=== PATIENT | male | born 1970 | race Caucasian/White ===

== ENCOUNTER 2021-10-21 09:39 | Inpatient (IN) | payer OTHER ==
[2021-10-21] MEDS ORDERED: METHOCARBAMOL 500 MG TABLET PO PRN (09:56)
[2021-10-21] MEDS ORDERED: MENTHOL/PHENOL 1 EACH UD MM PRN (09:56)
[2021-10-21] MEDS ORDERED: MAGNESIUM HYDROX 2400MG/30ML ORAL SUSPENSION 30 ML CUP PO PRN (09:56)
[2021-10-21] MEDS ORDERED: IBUPROFEN 400 MG TABLET (FP) PO PRN (09:56)
[2021-10-21] MEDS ORDERED: ONDANSETRON *ODT* 4 MG TABLET SL PRN (09:56)
[2021-10-21] MEDS ORDERED: cloNIDine HCL 0.1 MG TABLET PO PRN (09:56)
[2021-10-21] MEDS ORDERED: MAGNESIUM CITRATE 300 ML BOTTLE PO PRN (09:56)
[2021-10-21] MEDS ORDERED: BISMUTH SUBSALICYLATE 524 MG/30 ML PO PRN (09:56)
[2021-10-21] MEDS ORDERED: MAG HYDROX/AL HYDROX/SIMETH 30 ML UNIT-DOSE CUP PO PRN (09:56)
[2021-10-21] MEDS ORDERED: ACETAMINOPHEN 325 MG TABLET (FP) PO PRN ×2 (09:56)
[2021-10-21] MEDS ORDERED: methaDONE HCL 10 MG TABLET (FOR DETOX USE ONLY) PO ONE (10:30)
[2021-10-21 10:50] VITALS: BMI 25.3
[2021-10-21] MEDS: PRENATAL VITAMINS W/ FOLIC ACID TABLET (FP) PO SCH (13:42)
[2021-10-21] MEDS: hydrOXYzine PAMOATE 25 MG CAPSULE (FP) PO SCH ×5 (13:42→22:34)
[2021-10-21 18:23] LABS: HEMATOCRIT 38.8 % (35.4-49); HEMOGLOBIN 13.2 GM/dL (11.7-16.9); MCH 30.6 pg (25.7-33.7); MCHC 34.1 g/dl (32.0-35.9); MEAN CELL VOLUME 89.6 fl (80-96); MEAN PLT VOLUME 7.6 fl (7.5-11.1); PLATELET COUNT 332 10^3/uL (134-434); RBC 4.33 M/mm3 (4.00-5.60); WHITE BLOOD COUNT 12.9 K/mm3 (4.0-10.0)
[2021-10-21 18:29] LABS: ALBUMIN 3.6 g/dl (3.4-5.0); CALCIUM 10.1 mg/dL (8.5-10.1)
[2021-10-21 18:30] LABS: BLOOD UREA NITROGEN 31.4 mg/dL (7-18)
[2021-10-21 18:32] LABS: CREATININE 1.4 mg/dL (0.55-1.3)
[2021-10-21 18:34] LABS: BILIRUBIN,TOTAL 0.7 mg/dL (0.2-1); TOT PROT 6.8 g/dl (6.4-8.2)
[2021-10-21 19:23] LABS: HIV INTERPRETATION NEGATIVE (NEGATIVE)
[2021-10-21] MEDS: THIAMINE HCL 100 MG TABLET (FP) PO SCH (22:34)
[2021-10-21] MEDS: MELATONIN 5 MG TABLETS PO SCH (22:34)
[2021-10-21] MEDS: ARIPiprazole 10 MG TABLET PO SCH (22:34)
[2021-10-22] MEDS: hydrOXYzine PAMOATE 25 MG CAPSULE (FP) PO SCH ×5 (07:13→22:17)
[2021-10-22] MEDS ORDERED: methaDONE HCL 10 MG TABLET (FOR DETOX USE ONLY) ONE (09:20)
[2021-10-22] MEDS: SERTRALINE HCL 50 MG TABLET (FP) PO SCH (10:52)
[2021-10-22] MEDS: PRENATAL VITAMINS W/ FOLIC ACID TABLET (FP) PO SCH (10:52)
[2021-10-22] MEDS ORDERED: FLU VACC QS2021-22(6MOS UP)/PF 60 MCG/0.5 ML SYRINGE IM ONE (13:00)
[2021-10-22] MEDS: ALBUTEROL SO4 HFA INHALER IH PRN (18:14)
[2021-10-22] MEDS: MELATONIN 5 MG TABLETS PO SCH (22:17)
[2021-10-22] MEDS: THIAMINE HCL 100 MG TABLET (FP) PO SCH (22:17)
[2021-10-22] MEDS: ARIPiprazole 10 MG TABLET PO SCH (22:17)
[2021-10-23] MEDS: hydrOXYzine PAMOATE 25 MG CAPSULE (FP) PO SCH ×5 (07:19→22:20)
[2021-10-23] MEDS ORDERED: methaDONE HCL 10 MG TABLET (FOR DETOX USE ONLY) PO ONE (10:00)
[2021-10-23] MEDS: LISINOPRIL 20 MG TABLET PO SCH (10:28)
[2021-10-23] MEDS: SERTRALINE HCL 50 MG TABLET (FP) PO SCH (10:28)
[2021-10-23] MEDS: NIFEdipine E.R. 30 MG TABLET PO SCH (10:28)
[2021-10-23] MEDS: PRENATAL VITAMINS W/ FOLIC ACID TABLET (FP) PO SCH (10:28)
[2021-10-23] MEDS ORDERED: ALBUTEROL SO4 2.5/IPRATROPIUM 0.5 INH SOL 3 ML VIAL.NEB. NEB ONE (11:35)
[2021-10-23] MEDS: ALBUTEROL SO4 HFA INHALER IH PRN (17:07)
[2021-10-23] MEDS: ARIPiprazole 10 MG TABLET PO SCH (22:20)
[2021-10-23] MEDS: MELATONIN 5 MG TABLETS PO SCH (22:20)
[2021-10-23] MEDS: THIAMINE HCL 100 MG TABLET (FP) PO SCH (22:20)
[2021-10-24] MEDS: hydrOXYzine PAMOATE 25 MG CAPSULE (FP) PO SCH ×5 (06:51→22:09)
[2021-10-24] MEDS ORDERED: methaDONE HCL 10 MG TABLET (FOR DETOX USE ONLY) ONE (09:48)
[2021-10-24] MEDS: ALBUTEROL SO4 HFA INHALER IH PRN ×2 (10:14→18:09)
[2021-10-24] MEDS: LISINOPRIL 20 MG TABLET PO SCH (10:16)
[2021-10-24] MEDS: PRENATAL VITAMINS W/ FOLIC ACID TABLET (FP) PO SCH (10:16)
[2021-10-24] MEDS: SERTRALINE HCL 50 MG TABLET (FP) PO SCH (10:16)
[2021-10-24] MEDS: NIFEdipine E.R. 30 MG TABLET PO SCH (10:16)
[2021-10-24 10:26] LABS: CALCIUM 9.3 mg/dL (8.5-10.1)
[2021-10-24 10:27] LABS: BASO % 0.3 % (0-2.0); BLOOD UREA NITROGEN 17.9 mg/dL (7-18); HEMATOCRIT 39.8 % (35.4-49); HEMOGLOBIN 13.9 GM/dL (11.7-16.9); MCH 30.7 pg (25.7-33.7); MEAN CELL VOLUME 87.6 fl (80-96); MEAN PLT VOLUME 7.6 fl (7.5-11.1); MONO % 8.5 % (3.8-10.2); NEUT % 57.2 % (42.8-82.8); PLATELET COUNT 360 10^3/uL (134-434); RBC 4.54 M/mm3 (4.00-5.60); RDW 14.6 % (11.9-15.9); WHITE BLOOD COUNT 7.4 K/mm3 (4.0-10.0)
[2021-10-24 10:30] LABS: CREATININE 1.1 mg/dL (0.55-1.3)
[2021-10-24] MEDS ORDERED: MODERNA COVID-19 VACC,MRNA/PF 50 MCG/0.25 ML EACH IM ONE (11:00)
[2021-10-24 13:33] LABS: PH,URINE 5.5 (5.0-8.0); URINE APPEARANCE CLEAR; URINE BILIRUBIN 1+ (NEGATIVE); URINE COLOR DK YELLOW; URINE GLUCOSE (UA) NEGATIVE (NEGATIVE); URINE KETONE TRACE (NEGATIVE); URINE LEUK ESTERASE NEGATIVE (NEGATIVE); URINE NITRITE NEGATIVE (NEGATIVE); URINE PROTEIN NEGATIVE (NEGATIVE)
[2021-10-24] MEDS: ARIPiprazole 10 MG TABLET PO SCH (22:09)
[2021-10-24] MEDS: THIAMINE HCL 100 MG TABLET (FP) PO SCH (22:09)
[2021-10-24] MEDS: MELATONIN 5 MG TABLETS PO SCH (22:09)
[2021-10-25] MEDS: hydrOXYzine PAMOATE 25 MG CAPSULE (FP) PO SCH ×5 (06:27→22:05)
[2021-10-25] MEDS: ALBUTEROL SO4 HFA INHALER IH PRN ×2 (07:12→22:06)
[2021-10-25] MEDS ORDERED: methaDONE HCL 10 MG TABLET (FOR DETOX USE ONLY) PO ONE (10:00)
[2021-10-25] MEDS: LISINOPRIL 20 MG TABLET PO SCH (10:13)
[2021-10-25] MEDS: SERTRALINE HCL 50 MG TABLET (FP) PO SCH (10:13)
[2021-10-25] MEDS: NIFEdipine E.R. 30 MG TABLET PO SCH (10:13)
[2021-10-25] MEDS: PRENATAL VITAMINS W/ FOLIC ACID TABLET (FP) PO SCH (10:13)
[2021-10-25] MEDS: THIAMINE HCL 100 MG TABLET (FP) PO SCH (22:05)
[2021-10-25] MEDS: ARIPiprazole 10 MG TABLET PO SCH (22:05)
[2021-10-25] MEDS: MELATONIN 5 MG TABLETS PO SCH (22:05)
[2021-10-26] MEDS: hydrOXYzine PAMOATE 25 MG CAPSULE (FP) PO SCH ×2 (05:43→10:27)
[2021-10-26 09:38] VITALS: BP 105/67; PULSE 92; TEMP 97.8
[2021-10-26] MEDS ORDERED: DOXYCYCLINE HYCLATE 100 MG TABLET PO SCH (10:15)
[2021-10-26] MEDS: NIFEdipine E.R. 30 MG TABLET PO SCH (10:27)
[2021-10-26] MEDS: PRENATAL VITAMINS W/ FOLIC ACID TABLET (FP) PO SCH (10:27)
[2021-10-26] MEDS: LISINOPRIL 20 MG TABLET PO SCH (10:27)
[2021-10-26] MEDS: SERTRALINE HCL 50 MG TABLET (FP) PO SCH (10:27)
== END 2021-10-26 11:36 | disposition other institution (70) | DRG 773 ==
LOC: YASAS 09:39 → Y3N 10:32
PROVIDERS: ADMIT Allergy & Immunology; ATTEND Allergy & Immunology
PROC: HZ2ZZZZ Detoxification Services for Substance Abuse Treatment (ICD-10-PCS; principal; 2021-10-21)
DX: F11.23 Opioid dependence with withdrawal (principal); F14.20 Cocaine dependence, uncomplicated; F25.9 Schizoaffective disorder, unspecified; F19.24 Other psychoactive substance dependence with psychoactive substance-induced mood disorder; I10 Essential (primary) hypertension; J45.909 Unspecified asthma, uncomplicated; G47.00 Insomnia, unspecified; R76.8 Other specified abnormal immunological findings in serum; N17.9 Acute kidney failure, unspecified; D72.829 Elevated white blood cell count, unspecified; Z88.0 Allergy status to penicillin; Z86.19 Personal history of other infectious and parasitic diseases; Z56.0 Unemployment, unspecified
CPT/HCPCS: 36415; 80048; 80053; 81003; 85025; 85027; 86593; 86780; 87389; 93005; 93010; C9803; U0003; U0005

== ENCOUNTER 2021-10-26 11:53 | Inpatient (IN) | payer OTHER ==
[2021-10-26] MEDS ORDERED: FLU VACC QS2021-22(6MOS UP)/PF 60 MCG/0.5 ML SYRINGE IM ONE (12:07)
[2021-10-26] MEDS ORDERED: PNEUMOC 13-VAL CONJ-DIP CRM/PF 0.5 ML DISP.SYRIN IM ONE (12:07)
[2021-10-26] MEDS ORDERED: PNEUMOCOCCAL 23 VACCINE 0.5 ML VIAL IM ONE (12:30)
[2021-10-26] MEDS ORDERED: ACETAMINOPHEN 325 MG TABLET (FP) PO PRN (12:59)
[2021-10-26] MEDS ORDERED: P-EPHED 60MG/TRIPROLIDI 2.5MG TABLET PO PRN (12:59)
[2021-10-26] MEDS ORDERED: MAGNESIUM CITRATE 300 ML BOTTLE PO PRN (12:59)
[2021-10-26] MEDS ORDERED: guaiFENesin 200 MG/10 ML 10 ML UNIT-DOSE CUPS PO PRN (12:59)
[2021-10-26] MEDS ORDERED: hydrOXYzine PAMOATE 25 MG CAPSULE (FP) PO PRN (12:59)
[2021-10-26] MEDS ORDERED: MAGNESIUM HYDROX 2400MG/30ML ORAL SUSPENSION 30 ML CUP PO PRN (12:59)
[2021-10-26] MEDS ORDERED: MAG HYDROX/AL HYDROX/SIMETH 30 ML UNIT-DOSE CUP PO PRN (12:59)
[2021-10-26] MEDS ORDERED: NICOTINE 10 MG CARTRIDGE (INHALER) IH PRN (12:59)
[2021-10-26] MEDS ORDERED: LOPERAMIDE HCL 2 MG CAPSULE PO PRN (12:59)
[2021-10-26] MEDS ORDERED: MENTHOL/PHENOL 1 EACH UD MM PRN (12:59)
[2021-10-26] MEDS: ALBUTEROL SO4 HFA INHALER IH PRN (19:41)
[2021-10-26] MEDS: THIAMINE HCL 100 MG TABLET (FP) PO SCH (21:00)
[2021-10-26] MEDS: MELATONIN 5 MG TABLETS PO SCH (21:00)
[2021-10-26] MEDS: ARIPiprazole 10 MG TABLET PO SCH (21:01)
[2021-10-27] MEDS: NIFEdipine E.R. 30 MG TABLET PO SCH (09:59)
[2021-10-27] MEDS: SERTRALINE HCL 50 MG TABLET (FP) PO SCH (09:59)
[2021-10-27] MEDS: NICOTINE 7 MG/24 HOURS TOPICAL PATCH TD SCH (09:59)
[2021-10-27] MEDS: LISINOPRIL 20 MG TABLET PO SCH (09:59)
[2021-10-27] MEDS: PRENATAL VITAMINS W/ FOLIC ACID TABLET (FP) PO SCH (09:59)
[2021-10-27] MEDS: ARIPiprazole 10 MG TABLET PO SCH (09:59)
[2021-10-27] MEDS ORDERED: PNEUMOCOCCAL 23 VACCINE 0.5 ML VIAL IM ONE (12:00)
[2021-10-27] MEDS ORDERED: FLU VACC QS2021-22(6MOS UP)/PF 60 MCG/0.5 ML SYRINGE IM ONE (12:00)
[2021-10-27] MEDS: MELATONIN 5 MG TABLETS PO SCH (21:37)
[2021-10-27] MEDS: THIAMINE HCL 100 MG TABLET (FP) PO SCH (21:37)
[2021-10-28] MEDS: IBUPROFEN 400 MG TABLET (FP) PO PRN ×2 (00:44→21:14)
[2021-10-28] MEDS: NIFEdipine E.R. 30 MG TABLET PO SCH (09:46)
[2021-10-28] MEDS: LISINOPRIL 20 MG TABLET PO SCH (09:46)
[2021-10-28] MEDS: ARIPiprazole 10 MG TABLET PO SCH (09:46)
[2021-10-28] MEDS: ALBUTEROL SO4 HFA INHALER IH PRN (09:47)
[2021-10-28] MEDS: SERTRALINE HCL 50 MG TABLET (FP) PO SCH (09:47)
[2021-10-28] MEDS: PRENATAL VITAMINS W/ FOLIC ACID TABLET (FP) PO SCH (09:48)
[2021-10-28] MEDS: NICOTINE 7 MG/24 HOURS TOPICAL PATCH TD SCH (09:48)
[2021-10-28] MEDS: DOXYCYCLINE HYCLATE 100 MG TABLET PO SCH (17:18)
[2021-10-28] MEDS: MELATONIN 5 MG TABLETS PO SCH (21:13)
[2021-10-28] MEDS: THIAMINE HCL 100 MG TABLET (FP) PO SCH (21:13)
[2021-10-29] MEDS: SERTRALINE HCL 50 MG TABLET (FP) PO SCH (09:53)
[2021-10-29] MEDS: DOXYCYCLINE HYCLATE 100 MG TABLET PO SCH ×2 (09:53→17:07)
[2021-10-29] MEDS: NIFEdipine E.R. 30 MG TABLET PO SCH (09:53)
[2021-10-29] MEDS: NICOTINE 7 MG/24 HOURS TOPICAL PATCH TD SCH (09:53)
[2021-10-29] MEDS: ARIPiprazole 10 MG TABLET PO SCH (09:53)
[2021-10-29] MEDS: PRENATAL VITAMINS W/ FOLIC ACID TABLET (FP) PO SCH (09:53)
[2021-10-29] MEDS: LISINOPRIL 20 MG TABLET PO SCH (09:53)
[2021-10-29] MEDS: BACITRACIN 0.9 GM PACKET TP SCH ×3 (14:53→21:09)
[2021-10-29] MEDS: MELATONIN 5 MG TABLETS PO SCH (21:08)
[2021-10-29] MEDS: THIAMINE HCL 100 MG TABLET (FP) PO SCH (21:08)
[2021-10-30] MEDS: IBUPROFEN 400 MG TABLET (FP) PO PRN (06:23)
[2021-10-30] MEDS: DOXYCYCLINE HYCLATE 100 MG TABLET PO SCH ×2 (09:29→18:02)
[2021-10-30] MEDS: NIFEdipine E.R. 30 MG TABLET PO SCH (09:29)
[2021-10-30] MEDS: ARIPiprazole 10 MG TABLET PO SCH (09:29)
[2021-10-30] MEDS: NICOTINE 7 MG/24 HOURS TOPICAL PATCH TD SCH (09:29)
[2021-10-30] MEDS: SERTRALINE HCL 50 MG TABLET (FP) PO SCH (09:29)
[2021-10-30] MEDS: PRENATAL VITAMINS W/ FOLIC ACID TABLET (FP) PO SCH (09:29)
[2021-10-30] MEDS: BACITRACIN 0.9 GM PACKET TP SCH ×2 (09:29→21:10)
[2021-10-30] MEDS: LISINOPRIL 20 MG TABLET PO SCH (09:29)
[2021-10-30] MEDS: THIAMINE HCL 100 MG TABLET (FP) PO SCH (21:09)
[2021-10-30] MEDS: MELATONIN 5 MG TABLETS PO SCH (21:09)
[2021-10-31] MEDS: LISINOPRIL 20 MG TABLET PO SCH ×2 (06:05→10:10)
[2021-10-31 07:11] VITALS: TEMP 98.8
[2021-10-31] MEDS: BACITRACIN 0.9 GM PACKET TP SCH (10:10)
[2021-10-31] MEDS: NICOTINE 7 MG/24 HOURS TOPICAL PATCH TD SCH (10:10)
[2021-10-31] MEDS: SERTRALINE HCL 50 MG TABLET (FP) PO SCH (10:10)
[2021-10-31] MEDS: NIFEdipine E.R. 30 MG TABLET PO SCH (10:10)
[2021-10-31] MEDS: DOXYCYCLINE HYCLATE 100 MG TABLET PO SCH (10:10)
[2021-10-31] MEDS: PRENATAL VITAMINS W/ FOLIC ACID TABLET (FP) PO SCH (10:10)
[2021-10-31] MEDS: ARIPiprazole 10 MG TABLET PO SCH (10:10)
[2021-10-31 10:30] VITALS: BP 144/90; PULSE 92
[2021-10-31] MEDS ORDERED: LITHIUM CARBONATE 300 MG CAPSULE PO SCH (11:30)
[2021-10-31] MEDS: ALBUTEROL SO4 HFA INHALER IH PRN (14:24)
[2021-10-31] MEDS ORDERED: SUVOREXANT 10 MG TABLET PO PRN (22:00)
== END 2021-10-31 14:28 | disposition home or self-care (01) | DRG 772 ==
LOC: YASAS 11:53 → Y3W 11:55
PROVIDERS: ADMIT Allergy & Immunology; ATTEND Allergy & Immunology
PROC: HZ42ZZZ Group Counseling for Substance Abuse Treatment, Cognitive-Behavioral (ICD-10-PCS; principal; 2021-10-26)
DX: F11.20 Opioid dependence, uncomplicated (principal); F14.20 Cocaine dependence, uncomplicated; F25.9 Schizoaffective disorder, unspecified; F19.24 Other psychoactive substance dependence with psychoactive substance-induced mood disorder; I10 Essential (primary) hypertension; J45.909 Unspecified asthma, uncomplicated; G47.00 Insomnia, unspecified; X10.0XXA Contact with hot drinks, initial encounter; Y93.9 Activity, unspecified; Y92.239 Unspecified place in hospital as the place of occurrence of the external cause; Z88.0 Allergy status to penicillin; Z86.19 Personal history of other infectious and parasitic diseases; Z56.0 Unemployment, unspecified
CPT/HCPCS: 82962; 90686; 90732; G0008; G0009

== ENCOUNTER 2022-02-18 10:06 | Inpatient (IN) | payer OTHER ==
[2022-02-18] MEDS ORDERED: ALBUTEROL SO4 HFA INHALER IH PRN (12:22)
[2022-02-18] MEDS ORDERED: MAGNESIUM CITRATE 300 ML BOTTLE PO PRN (12:25)
[2022-02-18] MEDS ORDERED: MAGNESIUM HYDROX 2400MG/30ML ORAL SUSPENSION 30 ML CUP PO PRN (12:25)
[2022-02-18] MEDS ORDERED: P-EPHED 60MG/TRIPROLIDI 2.5MG TABLET PO PRN (12:25)
[2022-02-18] MEDS ORDERED: BISMUTH SUBSALICYLATE 524 MG/30 ML PO PRN (12:25)
[2022-02-18] MEDS ORDERED: IBUPROFEN 400 MG TABLET (FP) PO PRN (12:25)
[2022-02-18] MEDS ORDERED: METHOCARBAMOL 500 MG TABLET PO PRN (12:25)
[2022-02-18] MEDS ORDERED: MENTHOL/PHENOL 1 EACH UD MM PRN (12:25)
[2022-02-18] MEDS ORDERED: MAG HYDROX/AL HYDROX/SIMETH 30 ML UNIT-DOSE CUP PO PRN (12:25)
[2022-02-18] MEDS ORDERED: hydrOXYzine PAMOATE 25 MG CAPSULE (FP) PO PRN (12:25)
[2022-02-18] MEDS ORDERED: ONDANSETRON *ODT* 4 MG TABLET SL PRN (12:25)
[2022-02-18] MEDS ORDERED: MELATONIN 5 MG TABLETS PO PRN (12:25)
[2022-02-18] MEDS ORDERED: ACETAMINOPHEN 325 MG TABLET (FP) PO PRN ×2 (12:25)
[2022-02-18] MEDS ORDERED: DICYCLOMINE HCL 10 MG CAPSULE PO PRN (12:25)
[2022-02-18] MEDS ORDERED: LOPERAMIDE HCL 2 MG CAPSULE PO PRN (12:25)
[2022-02-18] MEDS ORDERED: diazePAM 5 MG TABLET PO PRN (12:28)
[2022-02-18] MEDS ORDERED: AMMONIUM LACTATE 12% LOTION 225 GM BOTTLE TP PRN (12:37)
[2022-02-18 13:17] VITALS: BMI 27.6
[2022-02-18] MEDS ORDERED: THIAMINE HCL 100 MG TABLET (FP) PO SCH (22:00)
[2022-02-18] MEDS: FLUTICASONE/SALMETEROL 100 MCG/50 MCG DISKUS IH SCH (22:28)
[2022-02-19] MEDS ORDERED: SERTRALINE HCL 50 MG TABLET (FP) PO SCH (10:00)
[2022-02-19] MEDS ORDERED: PRENATAL VITAMINS W/ FOLIC ACID TABLET (FP) PO SCH (10:00)
[2022-02-19] MEDS ORDERED: LISINOPRIL 10 MG TABLET PO SCH (10:00)
[2022-02-19 10:16] VITALS: BP 127/84; PULSE 104; TEMP 97.6
[2022-02-19] MEDS: FLUTICASONE/SALMETEROL 100 MCG/50 MCG DISKUS IH SCH (10:21)
[2022-02-21 00:06] LABS: SARS-CoV-2 NAA Not Detected (Not Detected)
== END 2022-02-19 12:23 | disposition other institution (70) | DRG 773 ==
LOC: YASAS 10:06 → UNDOADMIN 13:09 → Y6N 13:09 → UNDODISIN 02-19 12:23
PROVIDERS: ADMIT Allergy & Immunology; ATTEND Allergy & Immunology
PROC: HZ2ZZZZ Detoxification Services for Substance Abuse Treatment (ICD-10-PCS; principal; 2022-02-18)
DX: F11.23 Opioid dependence with withdrawal (principal); F13.230 Sedative, hypnotic or anxiolytic dependence with withdrawal, uncomplicated; F19.24 Other psychoactive substance dependence with psychoactive substance-induced mood disorder; F32.A Depression, unspecified; I10 Essential (primary) hypertension; J44.9 Chronic obstructive pulmonary disease, unspecified; J45.20 Mild intermittent asthma, uncomplicated; Z86.19 Personal history of other infectious and parasitic diseases; Z88.0 Allergy status to penicillin
CPT/HCPCS: C9803-CS; U0003; U0005

== ENCOUNTER 2022-02-19 09:46 | Inpatient (IN) | payer OTHER ==
[2022-02-19] MEDS ORDERED: ACETAMINOPHEN 325 MG TABLET (FP) PO PRN (15:59)
[2022-02-19] MEDS ORDERED: NICOTINE 10 MG CARTRIDGE (INHALER) IH PRN (15:59)
[2022-02-19] MEDS ORDERED: IBUPROFEN 400 MG TABLET (FP) PO PRN (15:59)
[2022-02-19] MEDS ORDERED: NICOTINE POLACRILEX 2 MG GUM BC PRN (15:59)
[2022-02-19] MEDS ORDERED: LOPERAMIDE HCL 2 MG CAPSULE PO PRN (15:59)
[2022-02-19] MEDS ORDERED: guaiFENesin 200 MG/10 ML 10 ML UNIT-DOSE CUPS PO PRN (15:59)
[2022-02-19] MEDS ORDERED: MAGNESIUM HYDROX 2400MG/30ML ORAL SUSPENSION 30 ML CUP PO PRN (15:59)
[2022-02-19] MEDS ORDERED: MAGNESIUM CITRATE 300 ML BOTTLE PO PRN (15:59)
[2022-02-19] MEDS: THIAMINE HCL 100 MG TABLET (FP) PO SCH (21:22)
[2022-02-19] MEDS: MELATONIN 5 MG TABLETS PO SCH (21:22)
[2022-02-19] MEDS: AMMONIUM LACTATE 12% LOTION 225 GM BOTTLE TP SCH (21:23)
[2022-02-19] MEDS: BUDESONIDE/FORMETEROL FUMARATE 160/4.5 mcg INHALER IH SCH (21:23)
[2022-02-20] MEDS: hydrOXYzine PAMOATE 25 MG CAPSULE (FP) PO PRN (06:43)
[2022-02-20] MEDS ORDERED: LISINOPRIL 20 MG TABLET PO ONE (09:37)
[2022-02-20] MEDS ORDERED: LISINOPRIL 20 MG TABLET PO SCH (10:00)
[2022-02-20] MEDS: PRENATAL VITAMINS W/ FOLIC ACID TABLET (FP) PO SCH (11:14)
[2022-02-20] MEDS: BUDESONIDE/FORMETEROL FUMARATE 160/4.5 mcg INHALER IH SCH ×2 (11:15→21:36)
[2022-02-20] MEDS: SERTRALINE HCL 50 MG TABLET (FP) PO SCH (12:10)
[2022-02-20] MEDS: AMMONIUM LACTATE 12% LOTION 225 GM BOTTLE TP SCH ×2 (12:10→21:37)
[2022-02-20 14:41] LABS: HEMOGLOBIN 13.5 GM/dL (11.7-16.9); MCH 29.9 pg (25.7-33.7); MCHC 33.7 g/dl (32.0-35.9); MEAN CELL VOLUME 88.6 fl (80-96); MEAN PLT VOLUME 7.7 fl (7.5-11.1); PLATELET COUNT 395 10^3/uL (134-434); RBC 4.51 M/mm3 (4.00-5.60); RDW 14.2 % (11.9-15.9); WHITE BLOOD COUNT 6.2 K/mm3 (4.0-10.0)
[2022-02-20 15:06] LABS: CALCIUM 10.5 mg/dL (8.5-10.1)
[2022-02-20 15:07] LABS: ALBUMIN 3.7 g/dl (3.4-5.0); BLOOD UREA NITROGEN 13.8 mg/dL (7-18)
[2022-02-20 15:10] LABS: CREATININE 1.1 mg/dL (0.55-1.3)
[2022-02-20 15:11] LABS: BILIRUBIN,TOTAL 0.6 mg/dL (0.2-1); TOT PROT 7.1 g/dl (6.4-8.2)
[2022-02-20] MEDS: MELATONIN 5 MG TABLETS PO SCH (21:36)
[2022-02-20] MEDS: THIAMINE HCL 100 MG TABLET (FP) PO SCH (21:36)
[2022-02-21] MEDS: LISINOPRIL 20 MG TABLET PO SCH (06:05)
[2022-02-21] MEDS ORDERED: ACETAMINOPHEN 325 MG TABLET (FP) PO PRN (09:17)
[2022-02-21] MEDS ORDERED: MECLIZINE HCL 25 MG TABLET (FP) PO ONE (09:18)
[2022-02-21] MEDS: PRENATAL VITAMINS W/ FOLIC ACID TABLET (FP) PO SCH (10:18)
[2022-02-21] MEDS: SERTRALINE HCL 50 MG TABLET (FP) PO SCH (10:18)
[2022-02-21] MEDS: BUDESONIDE/FORMETEROL FUMARATE 160/4.5 mcg INHALER IH SCH ×2 (10:19→21:14)
[2022-02-21] MEDS: AMMONIUM LACTATE 12% LOTION 225 GM BOTTLE TP SCH ×2 (10:19→21:14)
[2022-02-21] MEDS: MELATONIN 5 MG TABLETS PO SCH (21:13)
[2022-02-21] MEDS: THIAMINE HCL 100 MG TABLET (FP) PO SCH (21:13)
[2022-02-22] MEDS: LISINOPRIL 20 MG TABLET PO SCH (05:34)
[2022-02-22] MEDS: SERTRALINE HCL 50 MG TABLET (FP) PO SCH (09:46)
[2022-02-22] MEDS: hydrOXYzine PAMOATE 25 MG CAPSULE (FP) PO PRN (09:46)
[2022-02-22] MEDS: BUDESONIDE/FORMETEROL FUMARATE 160/4.5 mcg INHALER IH SCH ×2 (09:46→21:16)
[2022-02-22] MEDS: PRENATAL VITAMINS W/ FOLIC ACID TABLET (FP) PO SCH (09:46)
[2022-02-22] MEDS: AMMONIUM LACTATE 12% LOTION 225 GM BOTTLE TP SCH ×2 (10:02→21:16)
[2022-02-22] MEDS: MELATONIN 5 MG TABLETS PO SCH (21:16)
[2022-02-22] MEDS: THIAMINE HCL 100 MG TABLET (FP) PO SCH (21:16)
[2022-02-23] MEDS: LISINOPRIL 20 MG TABLET PO SCH (05:50)
[2022-02-23] MEDS: BUDESONIDE/FORMETEROL FUMARATE 160/4.5 mcg INHALER IH SCH ×2 (10:20→21:07)
[2022-02-23] MEDS: PRENATAL VITAMINS W/ FOLIC ACID TABLET (FP) PO SCH (10:20)
[2022-02-23] MEDS: SERTRALINE HCL 50 MG TABLET (FP) PO SCH (10:20)
[2022-02-23] MEDS: hydrOXYzine PAMOATE 25 MG CAPSULE (FP) PO PRN (10:20)
[2022-02-23] MEDS: AMMONIUM LACTATE 12% LOTION 225 GM BOTTLE TP SCH ×2 (10:21→21:07)
[2022-02-23] MEDS: METHOCARBAMOL 500 MG TABLET PO SCH ×3 (14:13→21:06)
[2022-02-23 15:08] LABS: SARS-CoV-2 NAA Not Detected (Not Detected)
[2022-02-23] MEDS: THIAMINE HCL 100 MG TABLET (FP) PO SCH (21:06)
[2022-02-23] MEDS: SUVOREXANT 10 MG TABLET PO PRN (21:06)
[2022-02-23] MEDS ORDERED: MELATONIN 5 MG TABLETS PO SCH (22:00)
[2022-02-24] MEDS: LISINOPRIL 20 MG TABLET PO SCH (05:40)
[2022-02-24] MEDS: SERTRALINE HCL 50 MG TABLET (FP) PO SCH (10:08)
[2022-02-24] MEDS: METHOCARBAMOL 500 MG TABLET PO SCH ×4 (10:08→21:27)
[2022-02-24] MEDS: AMMONIUM LACTATE 12% LOTION 225 GM BOTTLE TP SCH ×2 (10:08→21:27)
[2022-02-24] MEDS: BUDESONIDE/FORMETEROL FUMARATE 160/4.5 mcg INHALER IH SCH ×2 (10:09→21:27)
[2022-02-24] MEDS: PRENATAL VITAMINS W/ FOLIC ACID TABLET (FP) PO SCH (10:09)
[2022-02-24] MEDS: hydrOXYzine PAMOATE 25 MG CAPSULE (FP) PO PRN (10:10)
[2022-02-24] MEDS ORDERED: LISINOPRIL 10 MG TABLET PO ONE (10:52)
[2022-02-24] MEDS: THIAMINE HCL 100 MG TABLET (FP) PO SCH (21:26)
[2022-02-24] MEDS: SUVOREXANT 10 MG TABLET PO PRN (21:27)
[2022-02-25] MEDS: hydrOXYzine PAMOATE 25 MG CAPSULE (FP) PO PRN (05:46)
[2022-02-25] MEDS: LISINOPRIL 10 MG TABLET PO SCH (05:46)
[2022-02-25] MEDS: ALBUTEROL SO4 HFA INHALER IH PRN (05:49)
[2022-02-25] MEDS: PRENATAL VITAMINS W/ FOLIC ACID TABLET (FP) PO SCH (09:57)
[2022-02-25] MEDS: METHOCARBAMOL 500 MG TABLET PO SCH ×4 (09:57→23:00)
[2022-02-25] MEDS: AMMONIUM LACTATE 12% LOTION 225 GM BOTTLE TP SCH ×2 (09:57→23:00)
[2022-02-25] MEDS: SERTRALINE HCL 50 MG TABLET (FP) PO SCH (09:57)
[2022-02-25] MEDS: BUDESONIDE/FORMETEROL FUMARATE 160/4.5 mcg INHALER IH SCH ×2 (09:58→23:00)
[2022-02-25] MEDS: THIAMINE HCL 100 MG TABLET (FP) PO SCH (22:59)
[2022-02-25] MEDS: SUVOREXANT 10 MG TABLET PO PRN (22:59)
[2022-02-26] MEDS: LISINOPRIL 10 MG TABLET PO SCH (06:17)
[2022-02-26] MEDS: PRENATAL VITAMINS W/ FOLIC ACID TABLET (FP) PO SCH (10:15)
[2022-02-26] MEDS: SERTRALINE HCL 50 MG TABLET (FP) PO SCH (10:15)
[2022-02-26] MEDS: AMMONIUM LACTATE 12% LOTION 225 GM BOTTLE TP SCH ×2 (10:16→21:41)
[2022-02-26] MEDS: BUDESONIDE/FORMETEROL FUMARATE 160/4.5 mcg INHALER IH SCH ×2 (10:16→21:41)
[2022-02-26] MEDS: METHOCARBAMOL 500 MG TABLET PO SCH ×4 (10:16→21:41)
[2022-02-26] MEDS: THIAMINE HCL 100 MG TABLET (FP) PO SCH (21:41)
[2022-02-27] MEDS: LISINOPRIL 10 MG TABLET PO SCH (06:41)
[2022-02-27] MEDS: SERTRALINE HCL 50 MG TABLET (FP) PO SCH (10:02)
[2022-02-27] MEDS: METHOCARBAMOL 500 MG TABLET PO SCH ×4 (10:03→21:19)
[2022-02-27] MEDS: BUDESONIDE/FORMETEROL FUMARATE 160/4.5 mcg INHALER IH SCH ×2 (10:03→21:20)
[2022-02-27] MEDS: PRENATAL VITAMINS W/ FOLIC ACID TABLET (FP) PO SCH (10:03)
[2022-02-27] MEDS: AMMONIUM LACTATE 12% LOTION 225 GM BOTTLE TP SCH ×2 (10:04→21:20)
[2022-02-27] MEDS: hydrOXYzine PAMOATE 25 MG CAPSULE (FP) PO PRN (14:09)
[2022-02-27] MEDS: ALBUTEROL SO4 HFA INHALER IH PRN (14:10)
[2022-02-27] MEDS: THIAMINE HCL 100 MG TABLET (FP) PO SCH (21:19)
[2022-02-27] MEDS: SUVOREXANT 10 MG TABLET PO PRN (21:20)
[2022-02-28] MEDS: LISINOPRIL 10 MG TABLET PO SCH (06:09)
[2022-02-28] MEDS: BUDESONIDE/FORMETEROL FUMARATE 160/4.5 mcg INHALER IH SCH ×2 (09:46→21:07)
[2022-02-28] MEDS: PRENATAL VITAMINS W/ FOLIC ACID TABLET (FP) PO SCH (09:47)
[2022-02-28] MEDS: SERTRALINE HCL 50 MG TABLET (FP) PO SCH (09:47)
[2022-02-28] MEDS: AMMONIUM LACTATE 12% LOTION 225 GM BOTTLE TP SCH ×2 (09:47→21:07)
[2022-02-28] MEDS: METHOCARBAMOL 500 MG TABLET PO SCH ×4 (09:47→21:06)
[2022-02-28] MEDS: MAG HYDROX/AL HYDROX/SIMETH 30 ML UNIT-DOSE CUP PO PRN (09:49)
[2022-02-28] MEDS: FLUTICASONE PROP 0.05% 16 GM NASAL SPRAY NS SCH ×2 (14:30→21:06)
[2022-02-28] MEDS: SUVOREXANT 10 MG TABLET PO PRN (21:06)
[2022-02-28] MEDS: THIAMINE HCL 100 MG TABLET (FP) PO SCH (21:06)
[2022-03-01] MEDS: hydrOXYzine PAMOATE 25 MG CAPSULE (FP) PO PRN (05:57)
[2022-03-01] MEDS: LISINOPRIL 10 MG TABLET PO SCH (05:57)
[2022-03-01] MEDS: BUDESONIDE/FORMETEROL FUMARATE 160/4.5 mcg INHALER IH SCH ×2 (10:24→21:23)
[2022-03-01] MEDS: AMMONIUM LACTATE 12% LOTION 225 GM BOTTLE TP SCH ×2 (10:25→21:23)
[2022-03-01] MEDS: PRENATAL VITAMINS W/ FOLIC ACID TABLET (FP) PO SCH (10:25)
[2022-03-01] MEDS: METHOCARBAMOL 500 MG TABLET PO SCH ×4 (10:25→21:22)
[2022-03-01] MEDS: FLUTICASONE PROP 0.05% 16 GM NASAL SPRAY NS SCH ×2 (10:25→21:22)
[2022-03-01] MEDS: SERTRALINE HCL 50 MG TABLET (FP) PO SCH (10:25)
[2022-03-01] MEDS: THIAMINE HCL 100 MG TABLET (FP) PO SCH (21:22)
[2022-03-01] MEDS: SUVOREXANT 10 MG TABLET PO PRN (21:23)
[2022-03-02] MEDS: LISINOPRIL 10 MG TABLET PO SCH (06:22)
[2022-03-02] MEDS: hydrOXYzine PAMOATE 25 MG CAPSULE (FP) PO PRN (06:22)
[2022-03-02] MEDS: BUDESONIDE/FORMETEROL FUMARATE 160/4.5 mcg INHALER IH SCH ×2 (09:44→21:44)
[2022-03-02] MEDS: PRENATAL VITAMINS W/ FOLIC ACID TABLET (FP) PO SCH (09:45)
[2022-03-02] MEDS: SERTRALINE HCL 50 MG TABLET (FP) PO SCH (09:45)
[2022-03-02] MEDS: AMMONIUM LACTATE 12% LOTION 225 GM BOTTLE TP SCH ×2 (09:45→21:42)
[2022-03-02] MEDS: METHOCARBAMOL 500 MG TABLET PO SCH ×4 (09:45→21:42)
[2022-03-02] MEDS: FLUTICASONE PROP 0.05% 16 GM NASAL SPRAY NS SCH ×2 (09:45→21:42)
[2022-03-02] MEDS: THIAMINE HCL 100 MG TABLET (FP) PO SCH (21:43)
[2022-03-02] MEDS: SUVOREXANT 10 MG TABLET PO PRN (21:44)
[2022-03-03] MEDS: LISINOPRIL 10 MG TABLET PO SCH (06:40)
[2022-03-03] MEDS: PRENATAL VITAMINS W/ FOLIC ACID TABLET (FP) PO SCH (09:59)
[2022-03-03] MEDS: SERTRALINE HCL 50 MG TABLET (FP) PO SCH (09:59)
[2022-03-03] MEDS: AMMONIUM LACTATE 12% LOTION 225 GM BOTTLE TP SCH ×2 (09:59→21:06)
[2022-03-03] MEDS: FLUTICASONE PROP 0.05% 16 GM NASAL SPRAY NS SCH ×2 (09:59→21:06)
[2022-03-03] MEDS: METHOCARBAMOL 500 MG TABLET PO SCH ×4 (09:59→21:05)
[2022-03-03] MEDS: BUDESONIDE/FORMETEROL FUMARATE 160/4.5 mcg INHALER IH SCH ×2 (09:59→21:06)
[2022-03-03] MEDS: hydrOXYzine PAMOATE 25 MG CAPSULE (FP) PO PRN (10:00)
[2022-03-03] MEDS: THIAMINE HCL 100 MG TABLET (FP) PO SCH (21:05)
[2022-03-03] MEDS: SUVOREXANT 10 MG TABLET PO PRN (21:05)
[2022-03-04] MEDS: LISINOPRIL 10 MG TABLET PO SCH (05:55)
[2022-03-04] MEDS: BUDESONIDE/FORMETEROL FUMARATE 160/4.5 mcg INHALER IH SCH ×2 (10:13→21:39)
[2022-03-04] MEDS: METHOCARBAMOL 500 MG TABLET PO SCH ×4 (10:14→21:03)
[2022-03-04] MEDS: AMMONIUM LACTATE 12% LOTION 225 GM BOTTLE TP SCH ×2 (10:14→21:39)
[2022-03-04] MEDS: SERTRALINE HCL 50 MG TABLET (FP) PO SCH (10:14)
[2022-03-04] MEDS: PRENATAL VITAMINS W/ FOLIC ACID TABLET (FP) PO SCH (10:14)
[2022-03-04] MEDS: FLUTICASONE PROP 0.05% 16 GM NASAL SPRAY NS SCH ×2 (10:14→21:05)
[2022-03-04] MEDS: THIAMINE HCL 100 MG TABLET (FP) PO SCH (21:03)
[2022-03-04] MEDS: SUVOREXANT 10 MG TABLET PO PRN (21:04)
[2022-03-05] MEDS: LISINOPRIL 10 MG TABLET PO SCH (06:33)
[2022-03-05] MEDS: ALBUTEROL SO4 HFA INHALER IH PRN (06:34)
[2022-03-05] MEDS: SERTRALINE HCL 50 MG TABLET (FP) PO SCH (10:02)
[2022-03-05] MEDS: PRENATAL VITAMINS W/ FOLIC ACID TABLET (FP) PO SCH (10:02)
[2022-03-05] MEDS: METHOCARBAMOL 500 MG TABLET PO SCH ×4 (10:03→21:29)
[2022-03-05] MEDS: AMMONIUM LACTATE 12% LOTION 225 GM BOTTLE TP SCH ×2 (10:03→21:30)
[2022-03-05] MEDS: FLUTICASONE PROP 0.05% 16 GM NASAL SPRAY NS SCH ×2 (10:03→21:30)
[2022-03-05] MEDS: BUDESONIDE/FORMETEROL FUMARATE 160/4.5 mcg INHALER IH SCH ×2 (10:03→21:47)
[2022-03-05] MEDS: THIAMINE HCL 100 MG TABLET (FP) PO SCH (21:29)
[2022-03-05] MEDS: SUVOREXANT 10 MG TABLET PO PRN (21:29)
[2022-03-06] MEDS: LISINOPRIL 10 MG TABLET PO SCH (06:35)
[2022-03-06] MEDS: BUDESONIDE/FORMETEROL FUMARATE 160/4.5 mcg INHALER IH SCH ×2 (10:08→21:42)
[2022-03-06] MEDS: PRENATAL VITAMINS W/ FOLIC ACID TABLET (FP) PO SCH (10:08)
[2022-03-06] MEDS: SERTRALINE HCL 50 MG TABLET (FP) PO SCH (10:08)
[2022-03-06] MEDS: ALBUTEROL SO4 HFA INHALER IH PRN (10:08)
[2022-03-06] MEDS: AMMONIUM LACTATE 12% LOTION 225 GM BOTTLE TP SCH ×2 (10:09→21:43)
[2022-03-06] MEDS: FLUTICASONE PROP 0.05% 16 GM NASAL SPRAY NS SCH ×2 (10:09→21:43)
[2022-03-06] MEDS: METHOCARBAMOL 500 MG TABLET PO SCH ×4 (10:09→21:42)
[2022-03-06] MEDS: THIAMINE HCL 100 MG TABLET (FP) PO SCH (21:41)
[2022-03-07] MEDS: LISINOPRIL 10 MG TABLET PO SCH (06:39)
[2022-03-07] MEDS: BUDESONIDE/FORMETEROL FUMARATE 160/4.5 mcg INHALER IH SCH ×2 (09:51→21:02)
[2022-03-07] MEDS: PRENATAL VITAMINS W/ FOLIC ACID TABLET (FP) PO SCH (09:51)
[2022-03-07] MEDS: METHOCARBAMOL 500 MG TABLET PO SCH ×4 (09:52→21:02)
[2022-03-07] MEDS: SERTRALINE HCL 50 MG TABLET (FP) PO SCH (09:52)
[2022-03-07] MEDS: AMMONIUM LACTATE 12% LOTION 225 GM BOTTLE TP SCH ×2 (09:52→21:03)
[2022-03-07] MEDS: FLUTICASONE PROP 0.05% 16 GM NASAL SPRAY NS SCH ×2 (09:52→21:03)
[2022-03-07] MEDS: SUVOREXANT 10 MG TABLET PO PRN (21:02)
[2022-03-07] MEDS: THIAMINE HCL 100 MG TABLET (FP) PO SCH (21:02)
[2022-03-08] MEDS: LISINOPRIL 10 MG TABLET PO SCH (06:01)
[2022-03-08] MEDS: BUDESONIDE/FORMETEROL FUMARATE 160/4.5 mcg INHALER IH SCH ×2 (09:40→21:34)
[2022-03-08] MEDS: PRENATAL VITAMINS W/ FOLIC ACID TABLET (FP) PO SCH (09:40)
[2022-03-08] MEDS: METHOCARBAMOL 500 MG TABLET PO SCH ×4 (09:41→21:34)
[2022-03-08] MEDS: SERTRALINE HCL 50 MG TABLET (FP) PO SCH (09:41)
[2022-03-08] MEDS: FLUTICASONE PROP 0.05% 16 GM NASAL SPRAY NS SCH ×2 (09:41→21:34)
[2022-03-08] MEDS: AMMONIUM LACTATE 12% LOTION 225 GM BOTTLE TP SCH ×2 (09:41→21:34)
[2022-03-08] MEDS: hydrOXYzine PAMOATE 25 MG CAPSULE (FP) PO PRN (09:41)
[2022-03-08] MEDS ORDERED: COLLOIDAL OATMEAL 1 BAR EACH TP PRN (11:06)
[2022-03-08] MEDS: THIAMINE HCL 100 MG TABLET (FP) PO SCH (21:33)
[2022-03-08] MEDS: SUVOREXANT 10 MG TABLET PO PRN (21:33)
[2022-03-09] MEDS: LISINOPRIL 10 MG TABLET PO SCH (06:02)
[2022-03-09] MEDS: BUDESONIDE/FORMETEROL FUMARATE 160/4.5 mcg INHALER IH SCH ×2 (10:06→21:04)
[2022-03-09] MEDS: AMMONIUM LACTATE 12% LOTION 225 GM BOTTLE TP SCH ×2 (10:07→21:05)
[2022-03-09] MEDS: SERTRALINE HCL 50 MG TABLET (FP) PO SCH (10:07)
[2022-03-09] MEDS: FLUTICASONE PROP 0.05% 16 GM NASAL SPRAY NS SCH ×2 (10:07→21:05)
[2022-03-09] MEDS: PRENATAL VITAMINS W/ FOLIC ACID TABLET (FP) PO SCH (10:07)
[2022-03-09] MEDS: METHOCARBAMOL 500 MG TABLET PO SCH ×4 (10:07→21:03)
[2022-03-09] MEDS: THIAMINE HCL 100 MG TABLET (FP) PO SCH (21:04)
[2022-03-09] MEDS: SUVOREXANT 10 MG TABLET PO PRN (21:04)
[2022-03-10] MEDS: LISINOPRIL 10 MG TABLET PO SCH (06:50)
[2022-03-10] MEDS: FLUTICASONE PROP 0.05% 16 GM NASAL SPRAY NS SCH ×2 (09:07→21:21)
[2022-03-10] MEDS: AMMONIUM LACTATE 12% LOTION 225 GM BOTTLE TP SCH ×2 (09:07→21:24)
[2022-03-10] MEDS: PRENATAL VITAMINS W/ FOLIC ACID TABLET (FP) PO SCH (09:08)
[2022-03-10] MEDS: METHOCARBAMOL 500 MG TABLET PO SCH ×4 (09:08→22:19)
[2022-03-10] MEDS: BUDESONIDE/FORMETEROL FUMARATE 160/4.5 mcg INHALER IH SCH ×2 (09:08→21:24)
[2022-03-10] MEDS: SERTRALINE HCL 50 MG TABLET (FP) PO SCH (09:08)
[2022-03-10] MEDS: hydrOXYzine PAMOATE 25 MG CAPSULE (FP) PO PRN (21:22)
[2022-03-10] MEDS: SUVOREXANT 10 MG TABLET PO PRN (21:23)
[2022-03-10] MEDS: THIAMINE HCL 100 MG TABLET (FP) PO SCH (22:19)
[2022-03-11] MEDS: LISINOPRIL 10 MG TABLET PO SCH (05:46)
[2022-03-11] MEDS: SERTRALINE HCL 50 MG TABLET (FP) PO SCH (09:58)
[2022-03-11] MEDS: BUDESONIDE/FORMETEROL FUMARATE 160/4.5 mcg INHALER IH SCH ×2 (09:58→21:30)
[2022-03-11] MEDS: METHOCARBAMOL 500 MG TABLET PO SCH ×4 (09:58→21:30)
[2022-03-11] MEDS: PRENATAL VITAMINS W/ FOLIC ACID TABLET (FP) PO SCH (09:59)
[2022-03-11] MEDS: hydrOXYzine PAMOATE 25 MG CAPSULE (FP) PO PRN (09:59)
[2022-03-11] MEDS: FLUTICASONE PROP 0.05% 16 GM NASAL SPRAY NS SCH ×2 (09:59→21:30)
[2022-03-11] MEDS: AMMONIUM LACTATE 12% LOTION 225 GM BOTTLE TP SCH ×2 (10:01→21:31)
[2022-03-11] MEDS: SUVOREXANT 10 MG TABLET PO PRN (21:30)
[2022-03-11] MEDS: THIAMINE HCL 100 MG TABLET (FP) PO SCH (21:30)
[2022-03-11] MEDS: MAG HYDROX/AL HYDROX/SIMETH 30 ML UNIT-DOSE CUP PO PRN (21:31)
[2022-03-12] MEDS: LISINOPRIL 10 MG TABLET PO SCH (06:29)
[2022-03-12] MEDS: METHOCARBAMOL 500 MG TABLET PO SCH ×4 (10:35→21:07)
[2022-03-12] MEDS: BUDESONIDE/FORMETEROL FUMARATE 160/4.5 mcg INHALER IH SCH ×2 (10:35→21:07)
[2022-03-12] MEDS: SERTRALINE HCL 50 MG TABLET (FP) PO SCH (10:35)
[2022-03-12] MEDS: hydrOXYzine PAMOATE 25 MG CAPSULE (FP) PO PRN (10:35)
[2022-03-12] MEDS: PRENATAL VITAMINS W/ FOLIC ACID TABLET (FP) PO SCH (10:35)
[2022-03-12] MEDS: FLUTICASONE PROP 0.05% 16 GM NASAL SPRAY NS SCH ×2 (10:37→21:07)
[2022-03-12] MEDS: AMMONIUM LACTATE 12% LOTION 225 GM BOTTLE TP SCH ×2 (10:37→21:07)
[2022-03-12] MEDS: SUVOREXANT 10 MG TABLET PO PRN (21:06)
[2022-03-12] MEDS: THIAMINE HCL 100 MG TABLET (FP) PO SCH (21:07)
[2022-03-13] MEDS: LISINOPRIL 10 MG TABLET PO SCH (06:36)
[2022-03-13] MEDS: SERTRALINE HCL 50 MG TABLET (FP) PO SCH (10:03)
[2022-03-13] MEDS: PRENATAL VITAMINS W/ FOLIC ACID TABLET (FP) PO SCH (10:03)
[2022-03-13] MEDS: BUDESONIDE/FORMETEROL FUMARATE 160/4.5 mcg INHALER IH SCH ×2 (10:03→21:28)
[2022-03-13] MEDS: hydrOXYzine PAMOATE 25 MG CAPSULE (FP) PO PRN (10:04)
[2022-03-13] MEDS: AMMONIUM LACTATE 12% LOTION 225 GM BOTTLE TP SCH ×2 (10:04→21:28)
[2022-03-13] MEDS: METHOCARBAMOL 500 MG TABLET PO SCH ×4 (10:04→21:27)
[2022-03-13] MEDS: FLUTICASONE PROP 0.05% 16 GM NASAL SPRAY NS SCH ×2 (10:04→21:28)
[2022-03-13] MEDS: THIAMINE HCL 100 MG TABLET (FP) PO SCH (21:26)
[2022-03-13] MEDS: SUVOREXANT 10 MG TABLET PO PRN (21:27)
[2022-03-14] MEDS: LISINOPRIL 10 MG TABLET PO SCH (06:41)
[2022-03-14] MEDS: SERTRALINE HCL 50 MG TABLET (FP) PO SCH (10:19)
[2022-03-14] MEDS: FLUTICASONE PROP 0.05% 16 GM NASAL SPRAY NS SCH ×2 (10:20→21:01)
[2022-03-14] MEDS: BUDESONIDE/FORMETEROL FUMARATE 160/4.5 mcg INHALER IH SCH ×2 (10:20→21:02)
[2022-03-14] MEDS: PRENATAL VITAMINS W/ FOLIC ACID TABLET (FP) PO SCH (10:20)
[2022-03-14] MEDS: METHOCARBAMOL 500 MG TABLET PO SCH ×4 (10:20→21:01)
[2022-03-14] MEDS: AMMONIUM LACTATE 12% LOTION 225 GM BOTTLE TP SCH ×2 (10:20→21:02)
[2022-03-14] MEDS: THIAMINE HCL 100 MG TABLET (FP) PO SCH (21:01)
[2022-03-14] MEDS: SUVOREXANT 10 MG TABLET PO PRN (21:01)
[2022-03-15] MEDS: LISINOPRIL 10 MG TABLET PO SCH (05:40)
[2022-03-15] MEDS: FLUTICASONE PROP 0.05% 16 GM NASAL SPRAY NS SCH ×2 (10:07→21:23)
[2022-03-15] MEDS: BUDESONIDE/FORMETEROL FUMARATE 160/4.5 mcg INHALER IH SCH ×2 (10:07→21:23)
[2022-03-15] MEDS: PRENATAL VITAMINS W/ FOLIC ACID TABLET (FP) PO SCH (10:07)
[2022-03-15] MEDS: AMMONIUM LACTATE 12% LOTION 225 GM BOTTLE TP SCH ×2 (10:07→21:23)
[2022-03-15] MEDS: METHOCARBAMOL 500 MG TABLET PO SCH ×4 (10:08→21:23)
[2022-03-15] MEDS: SERTRALINE HCL 50 MG TABLET (FP) PO SCH (10:09)
[2022-03-15] MEDS: hydrOXYzine PAMOATE 25 MG CAPSULE (FP) PO PRN (10:09)
[2022-03-15] MEDS: THIAMINE HCL 100 MG TABLET (FP) PO SCH (21:22)
[2022-03-15] MEDS: SUVOREXANT 10 MG TABLET PO PRN (21:23)
[2022-03-16] MEDS: LISINOPRIL 10 MG TABLET PO SCH (06:10)
[2022-03-16 06:58] VITALS: TEMP 97.6
[2022-03-16] MEDS: BUDESONIDE/FORMETEROL FUMARATE 160/4.5 mcg INHALER IH SCH ×2 (10:22→21:14)
[2022-03-16] MEDS: SERTRALINE HCL 50 MG TABLET (FP) PO SCH (10:22)
[2022-03-16] MEDS: FLUTICASONE PROP 0.05% 16 GM NASAL SPRAY NS SCH ×2 (10:22→21:14)
[2022-03-16] MEDS: hydrOXYzine PAMOATE 25 MG CAPSULE (FP) PO PRN (10:23)
[2022-03-16] MEDS: AMMONIUM LACTATE 12% LOTION 225 GM BOTTLE TP SCH ×2 (10:23→21:14)
[2022-03-16] MEDS: METHOCARBAMOL 500 MG TABLET PO SCH (10:23)
[2022-03-16] MEDS: PRENATAL VITAMINS W/ FOLIC ACID TABLET (FP) PO SCH (10:23)
[2022-03-16] MEDS: SUVOREXANT 10 MG TABLET PO PRN (21:13)
[2022-03-16] MEDS: THIAMINE HCL 100 MG TABLET (FP) PO SCH (21:13)
[2022-03-16] MEDS ORDERED: METHOCARBAMOL 500 MG TABLET PO SCH (22:00)
[2022-03-17] MEDS: LISINOPRIL 10 MG TABLET PO SCH (05:49)
[2022-03-17] MEDS: hydrOXYzine PAMOATE 25 MG CAPSULE (FP) PO PRN (05:50)
[2022-03-17 09:23] VITALS: BP 142/92; PULSE 78
[2022-03-17] MEDS: SERTRALINE HCL 50 MG TABLET (FP) PO SCH (09:27)
[2022-03-17] MEDS: AMMONIUM LACTATE 12% LOTION 225 GM BOTTLE TP SCH (09:27)
[2022-03-17] MEDS: PRENATAL VITAMINS W/ FOLIC ACID TABLET (FP) PO SCH (09:27)
[2022-03-17] MEDS: FLUTICASONE PROP 0.05% 16 GM NASAL SPRAY NS SCH (09:27)
[2022-03-17] MEDS: BUDESONIDE/FORMETEROL FUMARATE 160/4.5 mcg INHALER IH SCH (09:27)
== END 2022-03-17 09:58 | disposition home or self-care (01) | DRG 772 ==
LOC: YASAS 09:46 → Y3W 09:48
PROVIDERS: ADMIT Allergy & Immunology; ATTEND Allergy & Immunology
PROC: HZ42ZZZ Group Counseling for Substance Abuse Treatment, Cognitive-Behavioral (ICD-10-PCS; principal; 2022-02-19)
DX: F11.23 Opioid dependence with withdrawal (principal); F13.10 Sedative, hypnotic or anxiolytic abuse, uncomplicated; F19.282 Other psychoactive substance dependence with psychoactive substance-induced sleep disorder; F39 Unspecified mood [affective] disorder; F32.A Depression, unspecified; I10 Essential (primary) hypertension; J44.9 Chronic obstructive pulmonary disease, unspecified; R09.81 Nasal congestion; L29.9 Pruritus, unspecified; Z86.19 Personal history of other infectious and parasitic diseases; Z56.0 Unemployment, unspecified
CPT/HCPCS: 36415; 80053; 85027; 86593; 86780; C9803-CS; U0003; U0005

== ENCOUNTER 2023-04-19 18:31 | Inpatient (IN) | payer OTHER ==
[2023-04-19 19:26] VITALS: BMI 30.2
[2023-04-19] MEDS ORDERED: NALOXONE (NARCAN) HCL 4 MG/0.1 ML SPRAY NS PRN (21:28)
[2023-04-19] MEDS ORDERED: ALBUTEROL SO4 HFA INHALER IH PRN (21:28)
[2023-04-19] MEDS ORDERED: BENZOCAINE/MENTHOL (CHLORASEPTIC ) LOZENGE MM PRN (21:57)
[2023-04-19] MEDS ORDERED: METHOCARBAMOL 500 MG TABLET PO PRN (21:57)
[2023-04-19] MEDS ORDERED: guaiFENesin 600 MG TABLET.ER (FP) PO PRN (21:57)
[2023-04-19] MEDS ORDERED: hydrOXYzine PAMOATE 25 MG CAPSULE (FP) PO PRN (21:57)
[2023-04-19] MEDS ORDERED: IBUPROFEN 400 MG TABLET (FP) PO PRN (21:57)
[2023-04-19] MEDS ORDERED: P-EPHED 60MG/TRIPROLIDI 2.5MG TABLET PO PRN (21:57)
[2023-04-19] MEDS ORDERED: NALOXONE HCL 0.4 MG/ML VIAL IM PRN (21:57)
[2023-04-19] MEDS ORDERED: ONDANSETRON *ODT* 4 MG TABLET SL PRN (21:57)
[2023-04-19] MEDS ORDERED: LOPERAMIDE HCL 2 MG CAPSULE PO PRN (21:57)
[2023-04-19] MEDS ORDERED: BISMUTH SUBSALICYLATE 524 MG/30 ML PO PRN (21:57)
[2023-04-19] MEDS ORDERED: IBUPROFEN 600 MG TABLET (FP) PO PRN (21:57)
[2023-04-19] MEDS ORDERED: ACETAMINOPHEN 325 MG TABLET (FP) PO PRN (21:57)
[2023-04-19] MEDS ORDERED: MAGNESIUM HYDROX 2400MG/30ML ORAL SUSPENSION 30 ML CUP PO PRN (21:57)
[2023-04-19] MEDS ORDERED: DICYCLOMINE HCL 10 MG CAPSULE PO PRN (21:57)
[2023-04-19] MEDS ORDERED: MELATONIN 5 MG TABLETS PO PRN (21:57)
[2023-04-19] MEDS ORDERED: POLYETHYLENE GLYCOL (HEALTHYLAX) 3350 17 GM PACKET PO PRN (21:57)
[2023-04-19] MEDS ORDERED: BENZONATATE 200 MG CAPSULE PO PRN (21:57)
[2023-04-19] MEDS ORDERED: NALOXONE HCL (KLOXXADO) 8 MG SPRAY NS PRN (21:57)
[2023-04-19] MEDS ORDERED: MAG HYDROX/AL HYDROX/SIMETH 30 ML UNIT-DOSE CUP PO PRN (21:57)
[2023-04-19] MEDS ORDERED: THIAMINE HCL 100 MG TABLET (FP) PO SCH (22:00)
[2023-04-19] MEDS ORDERED: LISINOPRIL 10 MG TABLET ONE (22:31)
[2023-04-19] MEDS: LISINOPRIL 10 MG TABLET PO SCH (23:15)
[2023-04-20 09:46] VITALS: BP 152/84; PULSE 65; RESP 16; TEMP 97.6
[2023-04-20] MEDS ORDERED: PRENATAL VITAMINS W/ FOLIC ACID TABLET (FP) PO SCH (10:00)
[2023-04-20] MEDS: LISINOPRIL 10 MG TABLET PO SCH (10:24)
[2023-04-20 11:35] LABS: POTASSIUM 4.3 mmol/L (3.5-5.1)
[2023-04-20 11:36] LABS: HEMOGLOBIN 12.1 GM/dL (11.7-16.9); MCH 30.3 pg (25.7-33.7); MCHC 35.5 g/dl (32.0-35.9); MEAN CELL VOLUME 85.1 fl (80-96); PLATELET COUNT 263 10^3/uL (134-434); RBC 3.99 M/mm3 (4.00-5.60); RDW 12.9 % (11.9-15.9); WHITE BLOOD COUNT 5.6 K/mm3 (4.0-10.0)
[2023-04-20 11:37] LABS: ALBUMIN 3.2 g/dl (3.4-5.0); BLOOD UREA NITROGEN 18.2 mg/dL (7-18); CALCIUM 9.5 mg/dL (8.5-10.1)
[2023-04-20 11:40] LABS: CREATININE 0.9 mg/dL (0.55-1.3)
[2023-04-20 11:42] LABS: BILIRUBIN,TOTAL 0.5 mg/dL (0.2-1)
[2023-04-20 12:33] LABS: HIV INTERPRETATION NEGATIVE (NEGATIVE)
== END 2023-04-20 10:30 | disposition home or self-care (01) | DRG 773 ==
LOC: YASAS 18:31 → Y3N 04-20 01:20
PROVIDERS: ADMIT Allergy & Immunology; ATTEND Allergy & Immunology
PROC: HZ2ZZZZ Detoxification Services for Substance Abuse Treatment (ICD-10-PCS; principal; 2023-04-20)
DX: F11.23 Opioid dependence with withdrawal (principal); I10 Essential (primary) hypertension; J45.20 Mild intermittent asthma, uncomplicated; Z86.19 Personal history of other infectious and parasitic diseases; Z88.0 Allergy status to penicillin
CPT/HCPCS: 36415; 80053; 85027; 86593; 86780; 87389; 87635

== ENCOUNTER 2024-03-26 10:53 | Inpatient (IN) | payer OTHER ==
[2024-03-26 11:27] VITALS: BMI 26.3
[2024-03-26] MEDS ORDERED: hydrOXYzine PAMOATE 25 MG CAPSULE (FP) PO PRN (12:50)
[2024-03-26] MEDS ORDERED: BENZOCAINE/MENTHOL (CHLORASEPTIC ) LOZENGE MM PRN (12:50)
[2024-03-26] MEDS ORDERED: NALOXONE HCL (KLOXXADO) 8 MG SPRAY NS PRN (12:50)
[2024-03-26] MEDS ORDERED: IBUPROFEN 400 MG TABLET (FP) PO PRN (12:50)
[2024-03-26] MEDS ORDERED: NALOXONE HCL 0.4 MG/ML VIAL IM PRN (12:50)
[2024-03-26] MEDS ORDERED: MAGNESIUM HYDROX 2400MG/30ML ORAL SUSPENSION 30 ML CUP PO PRN (12:50)
[2024-03-26] MEDS ORDERED: ACETAMINOPHEN 325 MG TABLET (FP) PO PRN (12:50)
[2024-03-26] MEDS ORDERED: POLYETHYLENE GLYCOL (HEALTHYLAX) 3350 17 GM PACKET PO PRN (12:50)
[2024-03-26] MEDS ORDERED: DICYCLOMINE HCL 10 MG CAPSULE PO PRN (12:50)
[2024-03-26] MEDS ORDERED: BISMUTH SUBSALICYLATE 524 MG/30 ML PO PRN (12:50)
[2024-03-26] MEDS ORDERED: guaiFENesin 600 MG TABLET.ER (FP) PO PRN (12:50)
[2024-03-26] MEDS ORDERED: LOPERAMIDE HCL 2 MG CAPSULE PO PRN (12:50)
[2024-03-26] MEDS ORDERED: MAG HYDROX/AL HYDROX/SIMETH 30 ML UNIT-DOSE CUP PO PRN (12:50)
[2024-03-26] MEDS ORDERED: ONDANSETRON *ODT* 4 MG TABLET SL PRN (12:50)
[2024-03-26] MEDS ORDERED: BENZONATATE 200 MG CAPSULE PO PRN (12:50)
[2024-03-26] MEDS ORDERED: IBUPROFEN 600 MG TABLET (FP) PO PRN (12:50)
[2024-03-26] MEDS ORDERED: ALBUTEROL SO4 HFA INHALER IH PRN (12:52)
[2024-03-26] MEDS: LISINOPRIL 20 MG TABLET PO SCH (13:47)
[2024-03-26] MEDS: LORazepam 1 MG TABLET PO PRN (13:47)
[2024-03-26] MEDS: LORazepam 2 MG TABLET PO SCH (17:34)
[2024-03-26] MEDS: MELATONIN 5 MG TABLETS PO SCH (22:20)
[2024-03-26] MEDS: THIAMINE 100 MG TABLET PO SCH (22:20)
[2024-03-26] MEDS: BUDESONIDE/FORMOTEROL FUMARATE 80-4.5 MCG (10.3 GM INHALER) IH SCH (23:18)
[2024-03-27] MEDS: PRENATAL VITAMINS W/ FOLIC ACID TABLET (FP) PO SCH (10:21)
[2024-03-27] MEDS: SERTRALINE HCL 50 MG TABLET (FP) PO SCH (10:22)
[2024-03-27 11:43] LABS: CALCIUM 9.7 mg/dL (8.5-10.1)
[2024-03-27 11:44] LABS: ALBUMIN 3.5 g/dl (3.4-5.0); BLOOD UREA NITROGEN 19.3 mg/dL (7-18); HEMOGLOBIN 13.9 GM/dL (11.7-16.9); MCH 32.2 pg (25.7-33.7); MCHC 35.6 g/dl (32.0-35.9); MEAN CELL VOLUME 90.6 fl (80-96); MEAN PLT VOLUME 9.1 fl (7.5-11.1); PLATELET COUNT 288 10^3/uL (134-434); RDW 13.3 % (11.9-15.9); WHITE BLOOD COUNT 7.8 K/mm3 (4.0-10.0)
[2024-03-27 11:47] LABS: CREATININE 1.1 mg/dL (0.55-1.3)
[2024-03-27 11:49] LABS: BILIRUBIN,TOTAL 0.3 mg/dL (0.2-1)
[2024-03-27] MEDS: LACTULOSE 20 GM/30 ML UDC (FOR ORAL USE ONLY) PO SCH (15:16)
[2024-03-28] MEDS: LORazepam 1 MG TABLET PO SCH (05:16)
[2024-03-28] MEDS: METHOCARBAMOL 500 MG TABLET PO PRN (23:25)
[2024-03-29] MEDS ORDERED: LORazepam 0.5 MG TABLET PO PRN
[2024-03-29] MEDS: LORazepam 0.5 MG TABLET PO SCH (05:50)
[2024-03-29 12:44] VITALS: PULSE 90
[2024-03-29 17:06] VITALS: BP 143/85; RESP 18; TEMP 98
[2024-03-30] MEDS ORDERED: LORazepam 0.5 MG TABLET PO ONE (05:00)
== END 2024-03-29 20:14 | disposition home or self-care (01) | DRG 774 ==
LOC: YASAS 10:53 → Y6N 12:41 → Y3N 12:43
PROVIDERS: ADMIT Allergy & Immunology; ATTEND Surgery
PROC: HZ2ZZZZ Detoxification Services for Substance Abuse Treatment (ICD-10-PCS; principal; 2024-03-26)
DX: F10.230 Alcohol dependence with withdrawal, uncomplicated (principal); F14.20 Cocaine dependence, uncomplicated; F19.94 Other psychoactive substance use, unspecified with psychoactive substance-induced mood disorder; F39 Unspecified mood [affective] disorder; I10 Essential (primary) hypertension; J44.9 Chronic obstructive pulmonary disease, unspecified; Z88.0 Allergy status to penicillin; Z56.0 Unemployment, unspecified; Z59.00 Homelessness unspecified
CPT/HCPCS: 36415; 80053; 80305; 80307; 82140; 85027; 86593; 86780; 93005; 93010

== ENCOUNTER 2024-05-05 23:05 | Inpatient (IN) | payer OTHER ==
[2024-05-05 23:33] VITALS: BMI 26.7
[2024-05-05] MEDS ORDERED: ALBUTEROL SO4 HFA INHALER IH PRN (23:45)
[2024-05-05] MEDS ORDERED: BENZONATATE 200 MG CAPSULE PO PRN (23:46)
[2024-05-05] MEDS ORDERED: NALOXONE HCL 0.4 MG/ML VIAL IM PRN (23:46)
[2024-05-05] MEDS ORDERED: MAGNESIUM HYDROX 2400MG/30ML ORAL SUSPENSION 30 ML CUP PO PRN (23:46)
[2024-05-05] MEDS ORDERED: DICYCLOMINE HCL 10 MG CAPSULE PO PRN (23:46)
[2024-05-05] MEDS ORDERED: guaiFENesin 600 MG TABLET.ER (FP) PO PRN (23:46)
[2024-05-05] MEDS ORDERED: NALOXONE (NARCAN) HCL 4 MG/0.1 ML SPRAY NS PRN (23:46)
[2024-05-05] MEDS ORDERED: POLYETHYLENE GLYCOL (HEALTHYLAX) 3350 17 GM PACKET PO PRN (23:46)
[2024-05-05] MEDS ORDERED: BENZOCAINE/MENTHOL (CHLORASEPTIC ) LOZENGE MM PRN (23:46)
[2024-05-05] MEDS ORDERED: NICOTINE POLACRILEX 2 MG LOZENGE BC PRN (23:46)
[2024-05-05] MEDS ORDERED: LOPERAMIDE HCL 2 MG CAPSULE PO PRN (23:46)
[2024-05-06] MEDS: METHOCARBAMOL 500 MG TABLET PO PRN (03:01)
[2024-05-06] MEDS: hydrOXYzine PAMOATE 25 MG CAPSULE (FP) PO PRN (03:01)
[2024-05-06] MEDS: ONDANSETRON *ODT* 4 MG TABLET SL PRN (03:16)
[2024-05-06] MEDS: LISINOPRIL 20 MG TABLET PO SCH (09:35)
[2024-05-06] MEDS: NICOTINE 14 MG/24 HOURS TOPICAL PATCH TD SCH (09:35)
[2024-05-06] MEDS: PRENATAL VITAMINS W/ FOLIC ACID TABLET (FP) PO SCH (09:35)
[2024-05-06] MEDS: BUDESONIDE/FORMETEROL FUMARATE 80/4.5 mcg INHALER IH SCH (09:35)
[2024-05-06] MEDS ORDERED: chlordiazePOXIDE HCL 25 MG CAPSULE PO PRN (09:47)
[2024-05-06] MEDS: chlordiazePOXIDE HCL 25 MG CAPSULE PO SCH (10:55)
[2024-05-06 12:00] LABS: HEMATOCRIT 37.9 % (35.4-49); HEMOGLOBIN 12.9 GM/dL (11.7-16.9); MCH 30.2 pg (25.7-33.7); MCHC 33.9 g/dl (32.0-35.9); MEAN CELL VOLUME 89.1 fl (80-96); MEAN PLT VOLUME 8.1 fl (7.5-11.1); PLATELET COUNT 365 10^3/uL (134-434); RBC 4.26 M/mm3 (4.00-5.60); RDW 13.3 % (11.9-15.9); WHITE BLOOD COUNT 14.9 K/mm3 (4.0-10.0)
[2024-05-06 12:26] LABS: CHLORIDE 103 mmol/L (98-107); POTASSIUM 5.1 mmol/L (3.5-5.1); SODIUM 135 mmol/L (136-145)
[2024-05-06 12:29] LABS: ANION GAP 4 mmol/L (4-13); CALCIUM 10.3 mg/dL (8.5-10.1); CO2 28 mmol/L (21-32); GLUCOSE,RANDOM 151 mg/dL (74-106)
[2024-05-06 12:30] LABS: ALBUMIN 3.4 g/dl (3.4-5.0); BLOOD UREA NITROGEN 25.5 mg/dL (7-18)
[2024-05-06 12:31] LABS: SGPT/ALT 23 U/L (13-61)
[2024-05-06 12:32] LABS: CREATININE 1.1 mg/dL (0.55-1.3); SGOT/AST 28 U/L (15-37)
[2024-05-06 12:34] LABS: ALK PHOS 95 U/L (45-117); BILIRUBIN,TOTAL 0.4 mg/dL (0.2-1); TOT PROT 6.7 g/dl (6.4-8.2)
[2024-05-06] MEDS: GABAPENTIN 100 MG CAPSULE PO SCH (13:25)
[2024-05-06] MEDS: MAG HYDROX/AL HYDROX/SIMETH 30 ML UNIT-DOSE CUP PO PRN (20:42)
[2024-05-06] MEDS ORDERED: MELATONIN 5 MG TABLETS PO SCH (22:00)
[2024-05-06] MEDS: SUVOREXANT 10 MG TABLET PO PRN (22:12)
[2024-05-06] MEDS: THIAMINE 100 MG TABLET PO SCH (22:12)
[2024-05-06] MEDS: PANTOPRAZOLE 20 MG TABLET PO ONE (23:30)
[2024-05-07] MEDS: TRIMETHOBENZAMIDE HCL 200MG/2ML INJ IM ONE (14:50)
[2024-05-07] MEDS: ACETAMINOPHEN 325 MG TABLET (FP) PO PRN (17:40)
[2024-05-08] MEDS: chlordiazePOXIDE HCL 25 MG CAPSULE PO SCH (05:28)
[2024-05-09] MEDS ORDERED: chlordiazePOXIDE HCL 10 MG CAPSULE PO PRN
[2024-05-09] MEDS: chlordiazePOXIDE HCL 10 MG CAPSULE PO SCH (05:20)
[2024-05-10] MEDS: chlordiazePOXIDE HCL 10 MG CAPSULE PO SCH (05:57)
[2024-05-11] MEDS: chlordiazePOXIDE HCL 10 MG CAPSULE PO ONE (05:47)
[2024-05-11 12:25] VITALS: BP 140/71; PULSE 64; RESP 16; TEMP 97.8
== END 2024-05-11 14:30 | disposition other institution (70) | DRG 773 ==
LOC: YASAS 23:05 → Y3N 05-06 02:24
PROVIDERS: ADMIT Allergy & Immunology; ATTEND Surgery
PROC: HZ2ZZZZ Detoxification Services for Substance Abuse Treatment (ICD-10-PCS; principal; 2024-05-06)
DX: F11.23 Opioid dependence with withdrawal (principal); F14.20 Cocaine dependence, uncomplicated; F17.210 Nicotine dependence, cigarettes, uncomplicated; F19.24 Other psychoactive substance dependence with psychoactive substance-induced mood disorder; G47.00 Insomnia, unspecified; I10 Essential (primary) hypertension; J45.20 Mild intermittent asthma, uncomplicated; R76.8 Other specified abnormal immunological findings in serum; Z86.19 Personal history of other infectious and parasitic diseases; Z88.0 Allergy status to penicillin
CPT/HCPCS: 36415; 80053; 80305; 80307; 85027; 86593; 86780; Q0162

== ENCOUNTER 2024-05-11 14:59 | Inpatient (IN) | payer OTHER ==
[2024-05-12] MEDS ORDERED: ACETAMINOPHEN 325 MG TABLET (FP) PO PRN (03:41)
[2024-05-12] MEDS ORDERED: MAGNESIUM HYDROX 2400MG/30ML ORAL SUSPENSION 30 ML CUP PO PRN (03:41)
[2024-05-12] MEDS ORDERED: guaiFENesin 600 MG TABLET.ER (FP) PO PRN (03:41)
[2024-05-12] MEDS ORDERED: NALOXONE (NYS OPIOID OVERDOSE PROGRAM) 4 MG/0.1 ML SPRAY NS PRN (03:41)
[2024-05-12] MEDS ORDERED: BENZONATATE 200 MG CAPSULE PO PRN (03:41)
[2024-05-12] MEDS ORDERED: LOPERAMIDE HCL 2 MG CAPSULE PO PRN (03:41)
[2024-05-12] MEDS ORDERED: NALOXONE HCL 0.4 MG/ML VIAL IVPUSH PRN (03:41)
[2024-05-12] MEDS ORDERED: hydrOXYzine PAMOATE 25 MG CAPSULE (FP) PO PRN (03:41)
[2024-05-12] MEDS ORDERED: BENZOCAINE/MENTHOL (CHLORASEPTIC ) LOZENGE MM PRN (03:41)
[2024-05-12] MEDS ORDERED: IBUPROFEN 400 MG TABLET (FP) PO PRN (03:41)
[2024-05-12] MEDS ORDERED: MAG HYDROX/AL HYDROX/SIMETH 30 ML UNIT-DOSE CUP PO PRN (03:41)
[2024-05-12] MEDS ORDERED: POLYETHYLENE GLYCOL (HEALTHYLAX) 3350 17 GM PACKET PO PRN (03:41)
[2024-05-12] MEDS: PRENATAL VITAMINS W/ FOLIC ACID TABLET (FP) PO SCH (06:08)
[2024-05-12] MEDS: BUDESONIDE/FORMETEROL FUMARATE 80/4.5 mcg INHALER IH SCH (10:24)
[2024-05-12] MEDS: LISINOPRIL 20 MG TABLET PO SCH (10:25)
[2024-05-12] MEDS: GABAPENTIN 100 MG CAPSULE PO SCH (13:29)
[2024-05-12 16:54] LABS: HIV INTERPRETATION NEGATIVE (NEGATIVE)
[2024-05-12] MEDS: MELATONIN 5 MG TABLETS PO SCH (21:30)
[2024-05-12] MEDS: THIAMINE 100 MG TABLET PO SCH (21:30)
[2024-05-13] MEDS: ARIPiprazole 5 MG TABLET PO SCH (09:46)
[2024-05-13] MEDS: MIRTAZAPINE 15 MG TABLET (FP) PO SCH (21:10)
[2024-05-15] MEDS ORDERED: ALBUTEROL SO4 2.5/IPRATROPIUM 0.5 INH SOL 3 ML VIAL.NEB. NEB PRN (10:06)
[2024-05-15] MEDS ORDERED: BUPRENORPHINE HCL 150 MCG, BUPRENORPHINE HCL 75 MCG BC PRN (10:08)
[2024-05-15] MEDS: PANTOPRAZOLE 20 MG TABLET PO SCH (10:17)
[2024-05-15] MEDS: BUPRENORPHINE HCL 150 MCG, BUPRENORPHINE HCL 75 MCG BC ONE (10:39)
[2024-05-15] MEDS: MELATONIN 5 MG TABLETS PO SCH (21:18)
[2024-05-15] MEDS: MIRTAZAPINE 15 MG TABLET (FP) PO SCH (21:19)
[2024-05-16] MEDS ORDERED: BUPRENORPHINE HCL 150 MCG, BUPRENORPHINE HCL 75 MCG BC PRN
[2024-05-16] MEDS: BUPRENORPHINE HCL 150 MCG, BUPRENORPHINE HCL 75 MCG BC SCH (06:25)
[2024-05-17] MEDS: BUPRENORPHINE HCL 450 MCG FILM BC SCH (06:37)
[2024-05-20] MEDS: ALBUTEROL SO4 HFA INHALER IH PRN (07:12)
[2024-05-20] MEDS: hydrOXYzine PAMOATE 50 MG CAPSULE (FP) PO PRN (17:43)
[2024-05-23] MEDS: BUPRENORPHINE/NALOXONE 4 MG/1 MG FILM PACKET SL SCH (10:52)
[2024-05-27] MEDS: FLUTICASONE PROP 0.05% 16 GM NASAL SPRAY NS SCH (12:59)
[2024-05-29] MEDS: IBUPROFEN 600 MG TABLET (FP) PO PRN (09:29)
[2024-06-05] MEDS ORDERED: BENZONATATE 200 MG CAPSULE PO PRN (17:01)
[2024-06-05] MEDS ORDERED: guaiFENesin 600 MG TABLET.ER (FP) PO PRN (17:01)
[2024-06-05] MEDS ORDERED: BISMUTH SUBSALICYLATE 524 MG/30 ML PO PRN (17:01)
[2024-06-05] MEDS ORDERED: ONDANSETRON *ODT* 4 MG TABLET SL PRN (17:01)
[2024-06-05] MEDS ORDERED: DICYCLOMINE HCL 10 MG CAPSULE PO PRN (17:01)
[2024-06-05] MEDS ORDERED: METHOCARBAMOL 500 MG TABLET PO PRN (17:01)
[2024-06-07] MEDS ORDERED: HYDROCORTISONE 0.5% TOPICAL OINTMENT TUBE TP PRN (09:27)
[2024-06-07] MEDS: HYDROCORTISONE 0.5% TOPICAL CREAM 30 GM TUBE TP PRN (13:35)
[2024-06-09 06:35] VITALS: TEMP 97.3
[2024-06-09 09:07] VITALS: BP 128/81; PULSE 95; RESP 18
== END 2024-06-09 09:16 | disposition home or self-care (01) | DRG 772 ==
LOC: YASAS 14:59 → Y3NR 15:00 → Y3E 05-12 12:39
PROVIDERS: ADMIT Allergy & Immunology; ATTEND Psychiatry & Neurology Pain Medicine
PROC: HZ42ZZZ Group Counseling for Substance Abuse Treatment, Cognitive-Behavioral (ICD-10-PCS; principal; 2024-05-11)
DX: F11.20 Opioid dependence, uncomplicated (principal); F10.20 Alcohol dependence, uncomplicated; F14.20 Cocaine dependence, uncomplicated; F12.20 Cannabis dependence, uncomplicated; F17.210 Nicotine dependence, cigarettes, uncomplicated; F19.282 Other psychoactive substance dependence with psychoactive substance-induced sleep disorder; F19.24 Other psychoactive substance dependence with psychoactive substance-induced mood disorder; F31.9 Bipolar disorder, unspecified; F39 Unspecified mood [affective] disorder; G47.00 Insomnia, unspecified; I10 Essential (primary) hypertension; J45.909 Unspecified asthma, uncomplicated; K21.9 Gastro-esophageal reflux disease without esophagitis; L30.9 Dermatitis, unspecified; R76.8 Other specified abnormal immunological findings in serum; Z86.19 Personal history of other infectious and parasitic diseases
CPT/HCPCS: 0241U-QW; 36415; 86803; 87389; 87811